=== PATIENT | male | born 1965 | race Caucasian/White ===

== ENCOUNTER 2018-07-23 16:46 | Observation (INO) ==
--- NOTE | 2018-07-23 17:15 | Emergency Department Note ---
Disposition Clinical Impression: Chest pain Qualifiers: Chest pain type: unspecified Qualified Code(s): R07.9 - Chest pain, unspecified Disposition: Admitted As Inpatient Condition: Good Time of Disposition: 19:55 Chest Pain HPI - General Chief Complaint: ED Chest Pain Stated Complaint: chest pain Time Seen by Provider: 07/23/18 16:56 Source: patient, family Limitations: no limitations Vital Signs Reviewed: Yes Nursing Notes Reviewed: Yes - History of Present Illness HPI Narrative: Mr. Reeves is a 52M who presents today complaining of chest pain of 2 days d uration. States he was riding in a car yesterday when the chest pain began suddenly. Describes the pain as right substernal with radiation of the pain to his back. Currently he is rating the pain as a 3/10, but states it flucuates with no identifiable exacerbating or relieving factors. He denies any shortness of breath, however pt's daughter is at bedside and reports he seemed to be breathing fast over the phone. Denies any nausea, vomiting, or diaphoresis. Denies any recent illnesses. No fever or chills. He does report a PMH of hypertension and hyperlipidemia, but states he no longer takes medications for these because "I don't need them". Does smoke 1ppd cigarettes. Admits to family history of CAD in multiple family members. Severity scale (1-10): 3 - Related Data Home Medications Medication Instructions Recorded Confirmed Ascorbate Calcium [Vitamin C] 500 mg PO DAILY 07/23/18 07/23/18 Biotin 1 mg PO DAILY 07/23/18 07/23/18 Cholecalciferol (Vitamin D3) 1,000 unit PO DAILY 07/23/18 07/23/18 [Children's Vitamin D3] DULoxetine [Cymbalta] 30 mg PO DAILY 07/23/18 07/23/18 Finasteride [Proscar] 5 mg PO DAILY 07/23/18 07/23/18 Nicotine Patch [Nicoderm] 21 mg TD DAILY 07/23/18 07/23/18 Vitamin A 10,000 unit PO DAILY 07/23/18 07/23/18 hydrOXYzine HCl [Hydroxyzine HCl] 50 mg PO BID PRN 07/23/18 07/23/18 Allergies Allergy/AdvReac Type Severity Reaction Status Date / Time No Known Allergies Allergy Verified 07/23/18 19:35 All systems ED: reviewed and negative except as stated. Review of Systems: As Per HPI Constitutional: Denies: fever, chills, weakness Cardiovascular: Reports: chest pain. Denies: palpitations, edema, syncope Respiratory: Denies: cough, dyspnea, wheezes, sputum production Gastrointestinal: Denies: nausea, vomiting, diarrhea, constipation Chest Pain PMH - Past Medical History Medical history: Reports: hyperlipidemia, hypertension Psychiatric history: Reports: depression - Social History Smoking Status: Current every day smoker Alcohol use: Reports: rarely Drug use: Reports: none Physical Exam Constitutional: well developed male, appears anxious Head: Normocephalic, atraumatic Eyes: PERRL, EOMI, sclera anicteric Neck: Soft, non-tender to palpation, trachea midline, no lymphadenopathy Lungs: Clear to auscultation bilaterally. Nonlabored breathing. No wheezes, rales, or rhonchi noted. Cardiac: RRR. +s1 +S2 No murmurs, clicks, or rubs noted. GI: Abdomen soft, nontender, nondistended. Extremities: Warm, radial pulses +2 and symmetrical. No cyanosis, pedal edema, or calf tenderness. Neuro: Alert and oriented 3. No focal deficits. No facial droop. No pronator drift. Sensation intact. CN II-XII intact. Normal speech. Skin: Warm, and dry. No rashes or lesions noted. - General Limitations: no limitations General appearance: alert Course Course Narrative: Initial history and physical exam revealed concern for ACS vs aortic dissection vs PE. Less likely diagnoses considered, including pneumonia and pneumothorax, but less likely with no fever or chills, and normal bilateral breath sounds on physical exam. Initial evaluation included CBC, BMP, troponin, lipase, PT/INR, and PTT. EKG, CXR, head CT, and CT dissection study were also ordered. Labs showed no acute abnormalities, including negative troponin. EKG showed normal sinus rhythm with no ischemic changes. CXR showed no acute abnormalities. CT head showed no acute intracranial abnormality. CT dissection study was negative for dissection, PE, and no acute intrathoracic or abdominal or pelvic abnormality. Due to patient's Heart score of 4 which can be attributed to history of chest pain, age, and multiple risk factors including smoking, HTN, HLD, and family hx, recommend patient be admitted for further chest pain workup. Discussed the patient's case with hospitalist, Dr Jones, who accepted the patient for admission and requested D-dimer be added to labs. Pt agreeable to this treatment plan. Stable for transfer to the floor. - Reevaluation(s) Reevaluation #1: Discussed lab results, EKG, CXR, Head CT, and CT dissection study with pt and family members present in room. Recommend admission for further chest pain workup with multiple risk factors for CAD. Pt agreeable to this treatment plan. Pt has no new complaints at this time. Time: 19:35 - Consultations Consultation #1: Discussed pt's case including labs and imaging with hospitalist, Dr Jones, w ho accepted the patient for admission for chest pain. He requested a d-dimer be added to labs. Time: 19:45 Vital Signs Temperature 97.8 F 07/23/18 16:48 Pulse Rate 85 07/23/18 16:48 Respiratory Rate 14 07/23/18 16:48 Blood Pressure 162/101 07/23/18 16:48 O2 Sat by Pulse Oximetry 100 07/23/18 16:48 Temperature 97.6 F 07/23/18 22:14 Pulse Rate 68 07/23/18 22:14 Respiratory Rate 18 07/23/18 22:14 Blood Pressure 147/87 07/23/18 22:14 O2 Sat by Pulse Oximetry 96 07/23/18 22:32 Oxygen Delivery Oxygen Delivery Room Air Chest Pain - Medical Records Medical records reviewed: Yes I reviewed the patient's medical records. - Lab Data Lab results reviewed: Yes I reviewed the patient's lab results. Result diagrams: 07/23/18 16:03 07/23/18 16:03 Lab Results 07/23/18 07/23/18 07/23/18 Range/Units 16:03 16:03 16:03 WBC 6.8 (4.3-11.1) K/mcL RBC 4.99 (4.19-5.50) M/mcL Hgb 16.0 (12.9-16.9) g/dL Hct 45.6 (37.5-50.1) % MCV 91.4 (83.0-100.0) fL MCH 32.1 (28.0-33.3) pg MCHC 35.1 (31.6-35.5) g/dL RDW 12.6 (11.5-14.5) % Plt Count 238 (140-400) K/mcL MPV 10.6 (9.4-12.4) fL Immature Gran % 0.1 (0-4) % Seg Neutrophils % 63.7 % Lymphocytes % 25.2 % Monocytes % 8.5 % Eosinophils % 1.8 % Basophils % 0.7 % Neutrophils # 4.3 (1.6-8.9) K/mcL Lymphocytes # 1.7 (0.6-4.6) K/mcL Monocytes # 0.6 (0.0-1.3) K/mcL Eosinophils # 0.1 (0.0-0.6) K/mcL Basophils # 0.1 (0.0-0.2) K/mcL PT 13.4 H (9.4-12.1) Seconds INR 1.2 APTT 33.6 (26.0-36.0) Seconds D-Dimer (0-500) ng/mLFEU Sodium 141 (136-145) mEq/L Potassium 3.7 (3.5-5.1) mEq/L Chloride 105 (98-107) mEq/L Carbon Dioxide 27 (23-29) mEq/L BUN 11 (6-20) mg/dL Creatinine 0.69 L (0.70-1.30) mg/dL Est GFR ( Amer) > 60 (> 60) Est GFR (Non-Af Amer) > 60 (> 60) BUN/Creatinine Ratio 16 (6-26) Glucose 103 (70-105) mg/dL Calculated Osmolality 292 (280-300) Calcium 9.9 (8.6-10.3) mg/dL Troponin I < 0.03 (< 0.04) ng/mL Lipase 13 (11-82) Units/L Blood Type Antibody Screen 07/23/18 07/23/18 Range/Units 18:50 19:48 WBC (4.3-11.1) K/mcL RBC (4.19-5.50) M/mcL Hgb (12.9-16.9) g/dL Hct (37.5-50.1) % MCV (83.0-100.0) fL MCH (28.0-33.3) pg MCHC (31.6-35.5) g/dL RDW (11.5-14.5) % Plt Count (140-400) K/mcL MPV (9.4-12.4) fL Immature Gran % (0-4) % Seg Neutrophils % % Lymphocytes % % Monocytes % % Eosinophils % % Basophils % % Neutrophils # (1.6-8.9) K/mcL Lymphocytes # (0.6-4.6) K/mcL Monocytes # (0.0-1.3) K/mcL Eosinophils # (0.0-0.6) K/mcL Basophils # (0.0-0.2) K/mcL PT (9.4-12.1) Seconds INR APTT (26.0-36.0) Seconds D-Dimer < 215 (0-500) ng/mLFEU Sodium (136-145) mEq/L Potassium (3.5-5.1) mEq/L Chloride (98-107) mEq/L Carbon Dioxide (23-29) mEq/L BUN (6-20) mg/dL Creatinine (0.70-1.30) mg/dL Est GFR ( Amer) (> 60) Est GFR (Non-Af Amer) (> 60) BUN/Creatinine Ratio (6-26) Glucose (70-105) mg/dL Calculated Osmolality (280-300) Calcium (8.6-10.3) mg/dL Troponin I (< 0.04) ng/mL Lipase (11-82) Units/L Blood Type O POSITIVE Antibody Screen NEGATIVE - Radiology Data Radiology results reviewed: Yes I reviewed the patient's radiology results. Chest X-Ray 07/23/18 17:10 IMPRESSION: No acute process. D/ / Barrington Malone MD / Barrington Malone MD Interpreting Provider: Barrington Malone MD Head CT 07/23/18 17:55 IMPRESSION: No acute intracranial abnormality. D/ / Sonya Lagunas Cha, MD / Sonya Lagunas Cha, MD Interpreting Provider: Sonya Lagunas Cha, MD Dissection 07/23/18 17:56 IMPRESSION: No evidence of aortic dissection. No acute intrathoracic nor abdominopelvic abnormality. D/ / Sonya Lagunas Cha, MD / Sonya Lagunas Cha, MD Interpreting Provider: Sonya Lagunas Cha, MD - EKG Data EKG attestation: Yes I reviewed and interpreted this EKG. EKG results narrative: EKG shows normal sinus rhythm with rate is 86. Normal axis. No ischemic changes. Heart Score - Score History: Moderately Suspicious EKG: Normal Age: 45-65 Risk Factors: Equal/Greater than 3 risk factor or history of atherosclerotic disease Troponin: Less than normal limit HEART Score Total: 4
[2018-07-23 17:25] LABS: Basophils # 0.1 K/mcL (0.0-0.2); Basophils % 0.7 %; Eosinophils # 0.1 K/mcL (0.0-0.6); Eosinophils % 1.8 %; Hematocrit 45.6 % (37.5-50.1); Immature Granulocytes % 0.1 % (0-4); Lymphocytes # 1.7 K/mcL (0.6-4.6); Lymphocytes % 25.2 %; Mean Corpuscular HGB Conc 35.1 g/dL (31.6-35.5); Mean Corpuscular Hemoglobin 32.1 pg (28.0-33.3); Mean Corpuscular Volume 91.4 fL (83.0-100.0); Mean Platelet Volume 10.6 fL (9.4-12.4); Monocytes # 0.6 K/mcL (0.0-1.3); Monocytes % 8.5 %; Neutrophils # 4.3 K/mcL (1.6-8.9); Platelet Count 238 K/mcL (140-400); Red Blood Count 4.99 M/mcL (4.19-5.50); Red Cell Distribution Width 12.6 % (11.5-14.5); Segmented Neutrophils % 63.7 %
[2018-07-23 17:33] LABS: INR 1.2; Prothrombin Time 13.4 Seconds (9.4-12.1)
[2018-07-23 17:35] LABS: Activated Partial Thrombo Time 33.6 Seconds (26.0-36.0)
[2018-07-23 17:53] LABS: BUN/Creatinine Ratio 16 (6-26); Blood Urea Nitrogen 11 mg/dL (6-20); Calcium 9.9 mg/dL (8.6-10.3); Carbon Dioxide 27 mEq/L (23-29); Chloride 105 mEq/L (98-107); Glucose 103 mg/dL (70-105); Lipase 13 Units/L (11-82); Osmolality,Calculated 292 (280-300); Potassium 3.7 mEq/L (3.5-5.1); Sodium 141 mEq/L (136-145); Troponin I < 0.03 ng/mL (< 0.04); eGFR For Non-African Americans > 60 (> 60)
[2018-07-23] MEDS ORDERED: Isovue-370 500 ML BOTTLE IVP ONE ×2 (17:56)
--- NOTE | 2018-07-23 18:03 | Emergency Department Note ---
Disposition Clinical Impression: Chest pain Qualifiers: Chest pain type: unspecified Qualified Code(s): R07.9 - Chest pain, unspecified Disposition: Admitted As Inpatient Condition: Good General Adult HPI - General Chief complaint: ED Chest Pain Stated complaint: chest pain Time Seen by Provider: 07/23/18 16:56 Source: patient, family Limitations: no limitations - History of Present Illness Pain Scale: 2 - Related Data Home Medications Medication Instructions Recorded Confirmed Ascorbate Calcium [Vitamin C] 500 mg PO DAILY 07/23/18 07/23/18 Biotin 1 mg PO DAILY 07/23/18 07/23/18 Cholecalciferol (Vitamin D3) 1,000 unit PO DAILY 07/23/18 07/23/18 [Children's Vitamin D3] DULoxetine [Cymbalta] 30 mg PO DAILY 07/23/18 07/23/18 Finasteride [Proscar] 5 mg PO DAILY 07/23/18 07/23/18 Nicotine Patch [Nicoderm] 21 mg TD DAILY 07/23/18 07/23/18 Vitamin A 10,000 unit PO DAILY 07/23/18 07/23/18 hydrOXYzine HCl [Hydroxyzine HCl] 50 mg PO BID PRN 07/23/18 07/23/18 Allergies Allergy/AdvReac Type Severity Reaction Status Date / Time No Known Allergies Allergy Verified 07/23/18 19:35 Past Medical History - Past Medical History Medical history: Reports: hyperlipidemia, hypertension Psychiatric history: Reports: depression - Social History Smoking Status: Current every day smoker Smokeless Tobacco Status: No Alcohol use: Reports: rarely Drug use: Reports: none Physical Exam - General Limitations: no limitations General appearance: alert Course Vital Signs Temperature 97.8 F 07/23/18 16:48 Pulse Rate 85 07/23/18 16:48 Respiratory Rate 14 07/23/18 16:48 Blood Pressure 162/101 07/23/18 16:48 O2 Sat by Pulse Oximetry 100 07/23/18 16:48 Temperature 97.6 F 07/23/18 22:14 Pulse Rate 68 07/23/18 22:14 Respiratory Rate 18 07/23/18 22:14 Blood Pressure 147/87 07/23/18 22:14 O2 Sat by Pulse Oximetry 96 07/23/18 22:32 Oxygen Delivery Oxygen Delivery Room Air Medical Decision Making - Lab Data Result diagrams: 07/23/18 16:03 07/23/18 16:03 Lab Results 07/23/18 07/23/18 07/23/18 Range/Units 16:03 16:03 16:03 WBC 6.8 (4.3-11.1) K/mcL RBC 4.99 (4.19-5.50) M/mcL Hgb 16.0 (12.9-16.9) g/dL Hct 45.6 (37.5-50.1) % MCV 91.4 (83.0-100.0) fL MCH 32.1 (28.0-33.3) pg MCHC 35.1 (31.6-35.5) g/dL RDW 12.6 (11.5-14.5) % Plt Count 238 (140-400) K/mcL MPV 10.6 (9.4-12.4) fL Immature Gran % 0.1 (0-4) % Seg Neutrophils % 63.7 % Lymphocytes % 25.2 % Monocytes % 8.5 % Eosinophils % 1.8 % Basophils % 0.7 % Neutrophils # 4.3 (1.6-8.9) K/mcL Lymphocytes # 1.7 (0.6-4.6) K/mcL Monocytes # 0.6 (0.0-1.3) K/mcL Eosinophils # 0.1 (0.0-0.6) K/mcL Basophils # 0.1 (0.0-0.2) K/mcL PT 13.4 H (9.4-12.1) Seconds INR 1.2 APTT 33.6 (26.0-36.0) Seconds D-Dimer (0-500) ng/mLFEU Sodium 141 (136-145) mEq/L Potassium 3.7 (3.5-5.1) mEq/L Chloride 105 (98-107) mEq/L Carbon Dioxide 27 (23-29) mEq/L BUN 11 (6-20) mg/dL Creatinine 0.69 L (0.70-1.30) mg/dL Est GFR ( Amer) > 60 (> 60) Est GFR (Non-Af Amer) > 60 (> 60) BUN/Creatinine Ratio 16 (6-26) Glucose 103 (70-105) mg/dL Calculated Osmolality 292 (280-300) Calcium 9.9 (8.6-10.3) mg/dL Troponin I < 0.03 (< 0.04) ng/mL Lipase 13 (11-82) Units/L Blood Type Antibody Screen 07/23/18 07/23/18 Range/Units 18:50 19:48 WBC (4.3-11.1) K/mcL RBC (4.19-5.50) M/mcL Hgb (12.9-16.9) g/dL Hct (37.5-50.1) % MCV (83.0-100.0) fL MCH (28.0-33.3) pg MCHC (31.6-35.5) g/dL RDW (11.5-14.5) % Plt Count (140-400) K/mcL MPV (9.4-12.4) fL Immature Gran % (0-4) % Seg Neutrophils % % Lymphocytes % % Monocytes % % Eosinophils % % Basophils % % Neutrophils # (1.6-8.9) K/mcL Lymphocytes # (0.6-4.6) K/mcL Monocytes # (0.0-1.3) K/mcL Eosinophils # (0.0-0.6) K/mcL Basophils # (0.0-0.2) K/mcL PT (9.4-12.1) Seconds INR APTT (26.0-36.0) Seconds D-Dimer < 215 (0-500) ng/mLFEU Sodium (136-145) mEq/L Potassium (3.5-5.1) mEq/L Chloride (98-107) mEq/L Carbon Dioxide (23-29) mEq/L BUN (6-20) mg/dL Creatinine (0.70-1.30) mg/dL Est GFR ( Amer) (> 60) Est GFR (Non-Af Amer) (> 60) BUN/Creatinine Ratio (6-26) Glucose (70-105) mg/dL Calculated Osmolality (280-300) Calcium (8.6-10.3) mg/dL Troponin I (< 0.04) ng/mL Lipase (11-82) Units/L Blood Type O POSITIVE Antibody Screen NEGATIVE Attestation Statement - Attestation Attestation: I examined this patient and my medical decision-making was reviewed with the CROWNING HAMMER OPERATOR/PA/Advanced Practice Nurse/Resident Physician. I agree with the documented findings, disposition and treatment plan as described except to the extent set forth below. I did see the patient and spoke with him and examined him. The patient had a sudden onset of chest pain while driving yesterday which occurred within a period of a few seconds with radiation to the back and my concern is for aortic dissection. Family says just within the last few minutes he has had some mild confusion. The patient does know the year and that he is at a hospital and does know the month but thought today was Friday. His vital signs are within normal limits at this time and I did call over to CT scan and they will take him over right away to get the dissection protocol CT scan and I will also get a noncontrast CT scan of his brain and in addition the patient will have a second IV line placed. I also did speak with the charge nurse just a few minutes ago to facilitate all this being done very quickly. Family is with him including his brother and his daughter. He is breathing comfortably. Not diaphoretic. Skin color good. I did review the patient's EKG which shows normal sinus rhythm with a rate of 86 without acute ischemic change. 180
[2018-07-23] MEDS ORDERED: Naloxone 0.4 MG/ML INJ IVP PRN (22:27)
[2018-07-23] MEDS ORDERED: Acetaminophen 325 MG TABLET PO PRN (22:29)
--- NOTE | 2018-07-24 01:47 | Internal Med History&Physical ---
Date of Encounter: 07/24/18 Time of Encounter: 21:30 Internal Medicine - H&P: HPI Chief complaint: Chest Pain Admitted From: Home Plans for Post Hospital Care: Home History of present illness: Mr. Reeves is a 52 year old male with past medical history significant for hypertension, hyperlipidemia, urinary retention, depression, and tobacco abuse who presents for complaints of substernal burning sharp chest pain radiating through back to right shoulder blade. Pain started yesterday and has remained constant but waxed and waned in intensity. Pain is rated at 5/10 when at its worst. Denies any alleviating or exacerbating factors. No associated symptoms besides fatigue. Attempted taking antacids at home thinking pain may be related to acid reflux but did not improve symptoms. Denies any known injury. Decided to seek evaluation today as pain persisted. Reports pain is still present but is minimal at this time. Patient currently denies any headache, dizziness, numbness, tingling, shortness of breath, abdominal pain, nausea, bowel or bladder changes. ER reported EKG as sinus rhythm with no ischemic changes. ER obtained chest xray which showed no acute process. ER also obtained CTA dissection study which showed no evidence of aortic dissection and no acute intrathoracic nor abdominopelvic abnormality. CT of the head was also obtained as patient had brief episode of confusion while in ER that since resolved spontaneously which showed no acute intracranial abnormality. Follows regularly with PCP around every 6 months. Denies any previous echocardiograms but does report having stress test around 4 years ago which he thinks was normal. Reports occasional social alcohol use, 1.5 packs per day cigarette smoking, and no drug use. Past Med Surg Social Fam HX - Past Medical History Medical history: hyperlipidemia, hypertension, other Additional medical history: urinary retention Psychiatric history: depression - Past Surgical History Additional surgical history: L knee. R hand - Social History Smoking Status: Current every day smoker Packs per day: 1.5 Smokeless Tobacco Status: No Alcohol use: rarely Drug use: none - Family History Mother Age: 83 Living Status: Still Living Hx Family Cancer: Yes (Breast Cancer) Hx Family Psychosocial Disorders: Yes (Dementia) Father Living Status: Age at : 80 Hx Family Cardiac Disorders: Yes Hx Family GI Disorders: Yes (perforated bowel) Hx Family Endocrine Disorder: Yes (Diabetes) Hx Family Medical Disorders: Yes (HTN, HLD) Internal Medicine - H&P: Meds Ascorbate Calcium [Vitamin C] 500 mg PO DAILY 07/23/18 [History] Biotin 1 mg PO DAILY 07/23/18 [History] Cholecalciferol (Vitamin D3) [Children's Vitamin D3] 1,000 unit PO DAILY 07/23/18 [History] DULoxetine [Cymbalta] 30 mg PO DAILY 07/23/18 [History] Finasteride [Proscar] 5 mg PO DAILY 07/23/18 [History] Nicotine Patch [Nicoderm] 21 mg TD DAILY 07/23/18 [History] Vitamin A 10,000 unit PO DAILY 07/23/18 [History] hydrOXYzine HCl [Hydroxyzine HCl] 50 mg PO BID PRN 07/23/18 [History] Allergy/AdvReac Type Severity Reaction Status Date / Time No Known Allergies Allergy Verified 07/23/18 19:35 All Systems PM: A 10-system review of systems was performed and is negative for pertinent findings except as documented above in the HPI. - Constitutional Vitals: Temp Pulse Resp BP Pulse Ox 97.6 F 68 18 147/87 96 07/23/18 22:14 07/23/18 22:14 07/23/18 22:14 07/23/18 22:14 07/23/18 22:32 Exam: General: Fully alert and oriented to person, time, place, and situation. Skin:Normal color, no rash, no lesions. HEENT:Pupils equal, round and reactive. Cardiovascular:Normal S1 & S2, no rubs, murmurs or gallops. No JVD. Pulse regular. Lungs:Breath sounds decreased, no wheezes or crackles. Abdomen:Soft, non-tender, no rigidity. Extremities:No deformity, no edema or tenderness, no joint swelling or clubbing. Neurological:Normal cognition and motor skills. Pulses:Carotid and radial pulses normal +2. GCS 15. Rest of the physical exam is non contributory. Internal Med - H&P Results - Labs CBC & Chem 7: 07/23/18 16:03 07/23/18 16:03 Labs: Short CBC 07/23/18 Range/Units 16:03 WBC 6.8 (4.3-11.1) K/mcL Hgb 16.0 (12.9-16.9) g/dL Hct 45.6 (37.5-50.1) % Plt Count 238 (140-400) K/mcL Neutrophils # 4.3 (1.6-8.9) K/mcL BMP 07/23/18 16:03 Sodium 141 Potassium 3.7 Chloride 105 Carbon Dioxide 27 BUN 11 Creatinine 0.69 L Glucose 103 Calcium 9.9 Cardiac Enzymes 07/23/18 07/23/18 Range/Units 16:03 23:09 Troponin I < 0.03 < 0.03 (< 0.04) ng/mL - Impressions ITS Impressions Chest X-Ray 07/23/18 17:10 IMPRESSION: No acute process. D/ / Barrington Malone MD / Barrington Malone MD Interpreting Provider: Barrington Malone MD Head CT 07/23/18 17:55 IMPRESSION: No acute intracranial abnormality. D/ / Sonya Lagunas Cha, MD / Sonya Lagunas Cha, MD Interpreting Provider: Sonya Lagunas Cha, MD Dissection 07/23/18 17:56 IMPRESSION: No evidence of aortic dissection. No acute intrathoracic nor abdominopelvic abnormality. D/ / Sonya Lagunas Cha, MD / Sonya Lagunas Cha, MD Interpreting Provider: Sonya Lagunas Cha, MD - Assessment and Plan (1) Chest pain Current Visit: Yes Status: Acute Assessment and plan: Continuous cardiac monitoring. CTA dissection and D dimer normal in ER. Initial troponin in ER negative, serial troponins ordered. Echocardiogram ordered. Stress test ordered. Qualifiers: Chest pain type: unspecified Qualified Code(s): R07.9 - Chest pain, unspecified (2) Confusion Current Visit: Yes Status: Acute Assessment and plan: Currently resolved. Brief episode of confusion reported in ER that resolved spontaneously. ER obtained head CT which showed no acute intracranial abnormality. Unclear etiology, monitor closely for any changes in mental status. (3) Tobacco abuse Current Visit: Yes Status: Chronic Assessment and plan: Currently smokes 1.5 packs cigarettes per day. Cessation strongly encouraged. - Time Spent With Patient Total time spent is greater than 50% in coordination of care (as documented) at patient's floor/unit and/or counseling patient:
[2018-07-24 04:58] LABS: Basophils # 0.1 K/mcL (0.0-0.2); Eosinophils # 0.2 K/mcL (0.0-0.6); Hematocrit 43.3 % (37.5-50.1); Hemoglobin 14.8 g/dL (12.9-16.9); Immature Granulocytes % 0.2 % (0-4); Lymphocytes # 1.6 K/mcL (0.6-4.6); Lymphocytes % 32.7 %; Mean Corpuscular HGB Conc 34.2 g/dL (31.6-35.5); Mean Corpuscular Hemoglobin 31.5 pg (28.0-33.3); Mean Corpuscular Volume 92.1 fL (83.0-100.0); Mean Platelet Volume 10.3 fL (9.4-12.4); Monocytes # 0.5 K/mcL (0.0-1.3); Monocytes % 10.1 %; Neutrophils # 2.5 K/mcL (1.6-8.9); Platelet Count 213 K/mcL (140-400); Red Cell Distribution Width 12.8 % (11.5-14.5)
[2018-07-24 05:24] LABS: BUN/Creatinine Ratio 16 (6-26); Blood Urea Nitrogen 11 mg/dL (6-20); Calcium 9.1 mg/dL (8.6-10.3); Carbon Dioxide 28 mEq/L (23-29); Chloride 109 mEq/L (98-107); Glucose 93 mg/dL (70-105); Osmolality,Calculated 291 (280-300); Potassium 4.1 mEq/L (3.5-5.1); Sodium 141 mEq/L (136-145); Troponin I < 0.03 ng/mL (< 0.04); eGFR For Non-African Americans > 60 (> 60)
[2018-07-24] MEDS ORDERED: Regadenoson 0.4 MG/5 ML SYRINGE IVP ONE ×2 (07:21→07:29)
[2018-07-24 11:04] VITALS: BP 156/89
[2018-07-24] MEDS ORDERED: 0.9 % Sodium Chloride 1,000 ML IVC ONE (11:08)
[2018-07-24] MEDS ORDERED: Aspirin Enteric Coated 81 MG Tablet PO SCH (11:15)
[2018-07-24] MEDS ORDERED: Nicotine 21 MG PATCH.TD24 TD SCH (11:15)
--- NOTE | 2018-07-24 11:15 | Discharge Summary ---
- NOTES TO OUTPATIENT PROVIDER Notes to Outpatient Provider: f/u with PCP in one week. Please quit smoking. Orders not resulted at time of discharge: Pending orders 07/23/18 22:34 NM kaitlynn perf SPECT multi [NM] Routine 07/24/18 11:08 MR head/brain wo con [MR] Routine Date of Encounter: 07/24/18 Time of Encounter: 11:13 - Discharge Diagnosis (1) Chest pain Priority: Primary Status: Acute Qualifiers: Chest pain type: unspecified Qualified Code(s): R07.9 - Chest pain, unspecified (2) Acute metabolic encephalopathy Priority: Primary Status: Acute (3) Tobacco abuse Priority: Secondary Status: Chronic Hospital course: Mr. Reeves is a 52 year old male with past medical history significant for hypertension, hyperlipidemia, urinary retention, depression, and chronic tobacco dependence pt presented to ER with complaints of substernal burning sharp chest pain radiating through back to right shoulder blade. He attempted taking antacids at home thinking pain may be related to acid reflux but did not improve symptoms. In the ER his chest xray showed no acute process and CTA dissection study showed no evidence of aortic dissection and no acute intrathoracic nor abdominopelvic abnormality. While he was in the ER he happene to have a breif episode of confusion which pt unable to recall. His CT of the head showed no acute intracranial abnormality. Patient stated lately he is going through a lot of stress, need to take care of his ill mother. He was admitted in the hospital and placed him on director of cardiac cath lab. His serial troponin came back as negative. Since patient is high risk for ACS he did go for nuclear stress test which came back as negative for ischemia or infarction. Pt does look dehdyratd too with IV hydration he felt better. His confusion is most likely due to dehydration / metabolic encephalopathy. He did go for brain MRI which came back as negative for Ischemia. Will d/c home in stable condition today. - Time Spent with Patient Total time spent providing and/or coordinating discharge services: - Discharge Medications Prescriptions: New Aspirin Enteric Coated [Aspirin EC] 81 mg PO DAILY #30 tablet. Continued Finasteride [Proscar] 5 mg PO DAILY Nicotine Patch [Nicoderm] 21 mg TD DAILY DULoxetine [Cymbalta] 30 mg PO DAILY hydrOXYzine HCl [Hydroxyzine HCl] 50 mg PO BID PRN PRN Reason: Anxiety Ascorbate Calcium [Vitamin C] 500 mg PO DAILY Biotin 1 mg PO DAILY Cholecalciferol (Vitamin D3) [Children's Vitamin D3] 1,000 unit PO DAILY Vitamin A 10,000 unit PO DAILY Home Medications: Ascorbate Calcium [Vitamin C] 500 mg PO DAILY 07/23/18 [History] Biotin 1 mg PO DAILY 07/23/18 [History] Cholecalciferol (Vitamin D3) [Children's Vitamin D3] 1,000 unit PO DAILY 07/23/18 [History] DULoxetine [Cymbalta] 30 mg PO DAILY 07/23/18 [History] Finasteride [Proscar] 5 mg PO DAILY 07/23/18 [History] Nicotine Patch [Nicoderm] 21 mg TD DAILY 07/23/18 [History] Vitamin A 10,000 unit PO DAILY 07/23/18 [History] hydrOXYzine HCl [Hydroxyzine HCl] 50 mg PO BID PRN 07/23/18 [History] Aspirin Enteric Coated [Aspirin EC] 81 mg PO DAILY #30 tablet. 07/24/18 [Rx] Allergies/Adverse Reactions: Allergy/AdvReac Type Severity Reaction Status Date / Time No Known Allergies Allergy Verified 07/23/18 19:35 Date of admission: 07/23/18 21:02 Primary care physician: Lorenzo Braxton DO - Constitutional Vitals: Temp Pulse Resp BP Pulse Ox 98.5 F 74 19 156/89 99 07/24/18 11:03 07/24/18 11:03 07/24/18 11:03 07/24/18 11:03 07/24/18 11:03 General appearance: Present: cooperative, A&O X 3, no acute distress, answers questions appropriately Exam: a - Head Head exam: Present: atraumatic, normal inspection - Neck Neck exam general surgery: Present: supple - Respiratory Respiratory exam: Present: decreased breath sounds. Absent: rales, respiratory distress, rhonchi, wheezes - Cardiovascular Cardiovascular exam: Present: RRR, +S1, +S2. Absent: tachycardia - GI/Abdominal GI/Abdominal exam: Present: normal bowel sounds, soft. Absent: rebound, rigid, tenderness - Extremities Exam Extremities exam: Present: normal inspection. Absent: calf tenderness, cyanotic, pedal edema, tenderness - Back Exam Back exam: Absent: CVA tenderness (L), CVA tenderness (R) - Neurological Exam Neurological exam: Present: alert, CN II-XII intact, normal gait, oriented X3, strengths equal and symetr throughout. Absent: motor sensory deficit, pronater drift, facial droop, speech deficit - Psychiatric Psychiatric exam: Present: normal affect, normal mood - Skin Skin exam: Absent: rash - Patient Status Disposition: Home, Self-Care Condition: Good Overall status at discharge: patient is back to baseline - Discharge Instructions Follow Up With: Lorenzo Braxton DO [Primary Care Provider] - 07/31/18 8:45 am () - Diet and Activity Activity: increase activity as tolerated Diet: low salt diet
--- NOTE | 2018-07-24 16:02 | Electrocardiograph Report ---
[address] [place], [place] [address] Test Date: 2018-07-23 Pat Name: Isacc Reeves Department: [id number] Room: 3B Gender: M Restaurant Host/Hostess: : 1965 Requested By: Darío Young Order Number: [id number] Reading MD: Marily Vásquez Measurements Intervals [place] Rate: 86 P: 53 AR: 133 QRS: 43 QRSD: 84 T: 49 QT: 361 QTc: 432 Interpretive Statements Sinus rhythm Electronically Signed On 07-24-2018 16:01:04 EDT by Marily Vásquez
== END 2018-07-24 15:37 | disposition home or self-care (01) ==
LOC: EMEROOARM 16:46 → 3BNU 16:46 → SUATTDRO 21:02 → 3BNU 21:54
PROVIDERS: ADMIT Pediatrics; ATTEND Family Medicine